=== PATIENT | female | born 1955 | race Two or more races ===

== ENCOUNTER 2017-12-01 08:55 | Outpatient (CLI) | payer OTHER ==
[~2017-12-01 08:55] MED LIST: CIPRO500 MG PO; COZAAR25 MG PO; LEVSIN/SL0.125 MG PO; PROTONIX40 MG PO; XALANTAN
== END 2017-12-01 09:26 | disposition home or self-care (01) ==
LOC: TOM 08:55
DX: K57.32 Diverticulitis of large intestine without perforation or abscess without bleeding (principal); R10.32 Left lower quadrant pain; R19.4 Change in bowel habit

== ENCOUNTER 2018-01-06 09:04 | Outpatient (CLI) | payer OTHER | END 2018-01-06 09:06 | disposition home or self-care (01) | LOC: NUCLEAR 09:04 | DX: K57.32 Diverticulitis of large intestine without perforation or abscess without bleeding (principal); R10.32 Left lower quadrant pain; R19.4 Change in bowel habit | CPT/HCPCS: 78227; A9537; J2805 ==

== ENCOUNTER 2018-08-09 09:31 | Day surgery (SDC) | payer OTHER | END 2018-08-09 15:00 | disposition home or self-care (01) | LOC: AMB-ENDOS 09:31 | DX: K57.30 Diverticulosis of large intestine without perforation or abscess without bleeding (principal) ==

== ENCOUNTER 2019-03-16 12:18 | Emergency (ER) | payer OTHER ==
[~2019-03-16] VITALS: Ht 175.3 cm; Wt 69.9 kg
[2019-03-16] MEDS ORDERED: PROMETH-CODEIN 65 ML PO (14:38)
== END 2019-03-16 14:54 | disposition left against medical advice (07) ==
LOC: ER 12:18
DX: Z53.20 Procedure and treatment not carried out because of patient's decision for unspecified reasons (principal)

== ENCOUNTER → 2019-08-17 10:35 | Outpatient (CLI) | payer OTHER ==
[~2019-08-17 10:35] MED LIST changes: +PROMETH-CODEIN 65 ML PO
== END | disposition home or self-care (01) ==
LOC: LAB 10:35
DX: J11.1 Influenza due to unidentified influenza virus with other respiratory manifestations (principal); R05 Cough

== ENCOUNTER 2021-08-02 16:17 | Inpatient (IN) | payer OTHER ==
[~2021-08-02] VITALS: Ht 172.7 cm; Wt 65.8 kg
[2021-08-04] MEDS ORDERED: CETIRIZINE HCL10 MG (16:01)
[2021-08-04] MEDS ORDERED: MELOXICAM15 MG (16:02)
[2021-08-04] MEDS ORDERED: EZETIMIBE10 MG (16:02)
[2021-08-04] MEDS ORDERED: LOSARTAN POTASS50 MG (16:02)
[2021-08-04] MEDS ORDERED: MONTELUKAST SOD10 MG (16:02)
[2021-08-06] MEDS ORDERED: CIPRO500 MG PO (09:32)
[2021-08-06] MEDS ORDERED: FLAGYL500MG PO (09:32)
== END 2021-08-06 11:38 | disposition home or self-care (01) | DRG 392 ==
LOC: ER 16:17 → MEDJ 08-03 13:47
PROVIDERS: ADMIT Internal Medicine; ATTEND Internal Medicine
DX: K57.32 Diverticulitis of large intestine without perforation or abscess without bleeding (principal); I11.9 Hypertensive heart disease without heart failure

== ENCOUNTER 2021-11-07 07:55 | Outpatient (CLI) | payer OTHER ==
[~2021-11-07 07:55] MED LIST changes: +CETIRIZINE HCL10 MG; +EZETIMIBE10 MG; +FLAGYL500MG PO; +LOSARTAN POTASS50 MG; +MELOXICAM15 MG; +MONTELUKAST SOD10 MG
== END 2021-11-07 08:01 | disposition home or self-care (01) ==
LOC: TOM 07:55
PROVIDERS: ATTEND Internal Medicine
DX: D37.4 Neoplasm of uncertain behavior of colon (principal)